=== PATIENT | female | born 1960 | race Caucasian/White ===

== ENCOUNTER 2016-09-13 16:27 | Emergency (ER) | payer OTHER ==
[~2016-09-13] VITALS: Ht 157.5 cm; Wt 76.0 kg
[2016-09-13] MEDS ORDERED: FLEXERIL10 MG PO (19:44)
[2016-09-13] MEDS ORDERED: PERCOCET 5/31 TABLET PO (19:44)
[2016-09-13 20:24] VITALS: BP 110/71
== END 2016-09-13 20:25 | disposition home or self-care (01) ==
LOC: EME 16:27 → RME 16:27
DX: S39.012A Strain of muscle, fascia and tendon of lower back, initial encounter (principal); W17.89XA Other fall from one level to another, initial encounter; Y93.44 Activity, trampolining; E11.9 Type 2 diabetes mellitus without complications; E78.5 Hyperlipidemia, unspecified
CPT/HCPCS: 72100; 99281; 99284